=== PATIENT | female | born 1975 | race American Indian/Alaskan Native ===

== ENCOUNTER → 2016-12-03 | Day surgery (SDC) | payer OTHER ==
[~2016-12-03] MED LIST: Benzocaine 20% Oral Spray 59.2 ML Canister MUCMEM ONE; Lactated Ringers 1,000 ML IV SCH; Lidocaine 1% 30 ML SDV INJECT ONE; Propofol 200 MG/20 ML SDV IV ONE
[2016-12-03 12:26] VITALS: BP 146/81
--- NOTE | 2016-12-03 14:36 | OR ---
DATE: 12/03/2016 PREOPERATIVE DIAGNOSIS: Epigastric discomfort. POSTOPERATIVE DIAGNOSIS: Type 1 hiatal hernia. ANESTHESIA: Topical lidocaine for the oropharyngeal area as well as IV sedation. ESTIMATED BLOOD LOSS: None. BRIEF HISTORY: Shayla Mccann is a 41-year-old female, who has been plagued by this epigastric pain. She has undergone a cholecystectomy and the pain returned. She has been treated for H. pylori and it still was there. I at this point, had the opportunity to discuss the risks and benefits of upper endoscopy, and she agrees to proceed. She was taken to the operating room and IV sedation was begun, but we did a time out first. I then prior to the IV sedation anesthetized her oropharyngeal area with lidocaine. A bite block was placed. At this point, I was able to pass the scope and clearly her epiglottis and cords looked good. On the esophagus, there was good peristalsis, and then at the Z-line there was just, I could see she did have clearly a small type 1 hiatal hernia. I would say it was about 3 cm. Passing the scope into the stomach, the rest of the stomach looked fine. On entering the greater and lesser curvatures, the prepyloric area was without ulcerations. I advanced the scope into the duodenum again, no ulcerations. Several biopsies were taken of the prepyloric area as well as for H. pylori. I took a biopsy then of the greater curvature. The rest of the mucosa looked normal. While coming out again, there was no signs of Chan's esophagus, and I did not see any gross diverticulum. She tolerated the procedure well. [facility] /[id number]
--- NOTE | 2016-12-10 09:09 | FUPR ---
SERVICE DATE: 12/07/2016 The phone conversation occurred here on the November, this is being dictated by Dr. Gonzalez. SUBJECTIVE: Ms. Mccann did call me because she wanted to know about the followup of her hiatal hernia. I had performed an upper endoscopy on her on Saturday. I told her that I really wanted her to come back in so that we could discuss this in person. She stated that she could not. She was asking what a hernia meant, I tried to explain it that with the smaller hernias we could treat this with medications. I told her that she needs to follow up this closely with her primary care. She stated that she does not really have a primary care and she is in the [place]. She has been to the [facility] before and I have recommended that she strongly follow up with them. In the mean time, I said she could easily come and see me today. She stated that she could not. At that point in time, I told her to start taking some [id number] medications such as Pepcid, to put the head of her bed. I explained to her that this needs to be followed as sometimes we will re-scope them or do additional tests, but that needs to be discussed in person. I also told her that I will be back in town on January 14 and the doors have been left open. I also explained that today we will be open and whenever she would want to come in and indeed she should. What she said she is going to do, she wants to start out by taking the medications as we explained. She seemed to understand that she would put her head over bed up and will go from there. Again, this conversation occurred just a moments ago and lasted about 6.5 minutes. This is again on Shayla Mccann a phone conversation, trying to get her to come into the clinic today. [facility] /[id number]
== END ==
LOC: DL.ENDO 08:29
PROVIDERS: ATTEND Surgery
DX: K29.50 Unspecified chronic gastritis without bleeding (principal); K44.9 Diaphragmatic hernia without obstruction or gangrene; K31.89 Other diseases of stomach and duodenum; I10 Essential (primary) hypertension; F17.210 Nicotine dependence, cigarettes, uncomplicated; Z90.49 Acquired absence of other specified parts of digestive tract; Z79.3 Long term (current) use of hormonal contraceptives; Z79.899 Other long term (current) drug therapy
CPT/HCPCS: 43239; 87077; J2704; J7120

== ENCOUNTER 2016-12-21 17:29 | Emergency (ER) | payer OTHER ==
[2016-12-21 17:57] VITALS: BP 182/101
[2016-12-21] MEDS ORDERED: GI Cocktail Oral Solution 30 ML PO ONE (18:58)
--- NOTE | 2016-12-21 19:30 | EDM.PDOC ---
ED HPI GI/ABDOMINAL - General Chief Complaint: Abdominal Pain Stated Complaint: NAUSEAUS,SWEATING,SHARP STABBING PAIN IN STOMACH Time Seen by Provider: 12/21/16 19:27 Source of Information: Reports: Patient History Limitations: Reports: No limitations - History of Present Illness INITIAL COMMENTS - FREE TEXT/NARRATIVE: onset Sx this AM. progressively getting worse. had gastroscopy by dr Villegas few weeks ago told has small H-H. - Related Data Allergies/ADRs: Allergies Allergy/AdvReac Type Severity Reaction Status Date / Time aspirin Allergy Nausea Verified 12/21/16 17:40 Penicillins Allergy Rash Verified 12/21/16 17:40 Home Meds: Home Meds Lisinopril 10 mg PO DAILY 03/12/14 [History] Norethindrone-Ethinyl Estrad [Norinyl 1+35] 1 each PO DAILY 11/30/16 [History] Past Medical History - Past Health History Medical/Surgical History: Denies Medical/Surgical History HEENT History: Reports: Impaired vision Cardiovascular History: Reports: None Respiratory History: Reports: Bronchitis, recurrent Gastrointestinal History: Reports: Other (see below) Other Gastrointestinal History: hernia Genitourinary History: Reports: None [employer] History: Reports: Musculoskeletal History: Reports: None Neurological History: Reports: None Psychiatric History: Reports: None Endocrine/Metabolic History: Reports: None Hematologic History: Reports: None Immunologic History: Reports: None Oncologic (Cancer) History: Reports: None Dermatologic History: Reports: None - Infectious Disease History Infectious Disease History: Reports: Chicken pox - Past Surgical History Head Surgeries/Procedures: Reports: None HEENT Surgical History: Reports: None Cardiovascular Surgical History: Reports: None Respiratory Surgical History: Reports: None GI Surgical History: Reports: Cholecystectomy Female Surgical History: Reports: None Social & Family History - Family History Family Medical History: Noncontributory HEENT: Reports: None Cardiac: Reports: None Respiratory: Reports: Asthma GI: Reports: None : Reports: None OBGYN: Reports: None Musculoskeletal: Reports: None Neurological: Reports: None Psychiatric: Reports: None Endocrine/Metabolic: Reports: Diabetes, type II Hematologic: Reports: None Immunologic: Reports: None Dermatologic: Reports: None Oncologic: Reports: None - Tobacco Use Smoking Status *Q: Current Every Day Smoker Years of Tobacco use: 30 Packs/Tins Daily: 0.2 Used Tobacco, but Quit: Yes Month Tobacco Last Used: january - Caffeine Use Caffeine Use: Reports: Coffee - Alcohol Use Days Per Week of Alcohol Use: 1 Number of Drinks Per Day: 1 Total Drinks Per Week: 1 - Recreational Drug Use Recreational Drug Use: No ED ROS GENERAL - Review of Systems Review Of Systems: ROS reveals no pertinent complaints other than HPI. ED EXAM, GI/ABD - Physical Exam Exam: See Below Exam Limited By: No limitations General Appearance: alert, WD/WN, anxious Ears: hearing grossly normal Throat/Mouth: Normal voice, No airway compromise Head: atraumatic Neck: non-tender, full range of motion Respiratory/Chest: no respiratory distress Cardiovascular: regular rate, rhythm GI/Abdominal: tenderness, other (epiG). No: distention, guarding, rebound, rigidity Neurological: alert, oriented, normal cognition, normal gait, no motor/sensory deficits Psychiatric: normal affect, normal mood Skin Exam: Warm, Dry Lymphatic: no adenopathy Course - Vital Signs Last Recorded V/S: Last Vital Signs Temp 36.3 C 12/21/16 17:54 Pulse 91 12/21/16 17:54 Resp 20 12/21/16 17:54 BP 182/101 H 12/21/16 17:54 Pulse Ox 98 12/21/16 17:54 - Orders/Labs/Meds Orders: Active Orders 24 hr Category Date Time Status EKG 12 Lead [EKG Documentation Completion] [RC] URGENT Care 12/21/16 19:04 Active Labs: Laboratory Tests 12/21/16 12/21/16 Range/Units 19:31 19:31 WBC 14.1 H (5.0-10.0) 10^3/uL RBC 4.08 L (4.2-5.4) 10^6/uL Hgb 12.2 (12.0-16.0) g/dL Hct 37.2 (37.0-47.0) % MCV 91.2 (80-100) fL MCH 29.9 (27.0-34.0) pg MCHC 32.8 L (33.0-35.0) g/dL Plt Count 312 (150-450) 10^3/uL Neut % (Auto) 73.8 (42.2-75.2) % Lymph % (Auto) 20.8 (20.5-50.1) % [place] % (Auto) 4.0 (2-8) % Eos % (Auto) 1.3 (1.0-3.0) % Baso % (Auto) 0.1 (0.0-1.0) % Sodium 135 (135-145) mmol/L Potassium 4.2 (3.6-5.0) mmol/L Chloride 103 (101-111) mmol/L Carbon Dioxide 24.0 (21.0-31.0) mmol/L Anion Gap 12.2 BUN 11 (7-18) mg/dL Creatinine 0.7 (0.6-1.3) mg/dL Est Cr Clr Drug Dosing 90.41 mL/min Estimated GFR (MDRD) > 60 BUN/Creatinine Ratio 15.71 Glucose 95 (74-105) mg/dL Calcium 9.4 (8.4-10.2) mg/dl Total Bilirubin 0.1 L (0.2-1.0) mg/dL AST 23 (10-42) IU/L ALT 27 (10-60) IU/L Alkaline Phosphatase 69 (42-121) IU/L Troponin I < 0.02 (0.00-0.02) ng/ml Total Protein 7.7 (6.7-8.2) g/dl Albumin 4.0 (3.2-5.5) g/dl Globulin 3.7 Albumin/Globulin Ratio 1.08 Meds: Medications Discontinued Medications Generic Name Dose Route Start Last Admin Trade Name Freq PRN Reason Stop Dose Admin Al Hydroxide/Mg Hydroxide 30 ml 12/21/16 18:58 12/21/16 19:02 Gi Cocktail PO 12/21/16 18:59 30 ml ONETIME ONE Administration - Re-Assessments/Exams Free Text/Narrative Re-Assessment/Exam: 12/21/16 19:29 s/p GI cocktail=better. 12/21/16 20:16 re-exam; Pt still feeling good, no c/o Departure - Departure Time of Disposition: 20:16 Disposition: Home, Self-Care 01 Condition: good Clinical Impression: Hiatal hernia with gastroesophageal reflux disease and esophagitis Instructions: Food Choices for Gastroesophageal Reflux Disease, Adult Forms: ED Department Discharge Additional Instructions: 1) rest and avoid bending lifting straining 2) have light meal tonight 3) follow up at clinic or recheck as needed - My Orders Last 24 Hours: My Active Orders 12/21/16 19:04 EKG 12 Lead [EKG Documentation Completion] [RC] URGENT - Assessment/Plan Last 24 Hours: My Active Orders 12/21/16 19:04 EKG 12 Lead [EKG Documentation Completion] [RC] URGENT
[2016-12-21 20:07] LABS: CHLORIDE,CL 103 mmol/L (101-111); SODIUM,NA 135 mmol/L (135-145)
--- NOTE | 2016-12-26 10:14 | EKG ---
12/21/2016 - OLIMPIA SALGADO - This 12-lead EKG shows baseline artifact throughout the limb leads. EKG itself shows a normal sinus rhythm with a ventricular rate of 89. Normal axis and intervals. No acute ST-segment or T-wave changes. [facility] /[id number]
== END 2016-12-21 20:24 | disposition home or self-care (01) ==
LOC: DL.ED 17:29
DX: K44.9 Diaphragmatic hernia without obstruction or gangrene (principal); K21.0 Gastro-esophageal reflux disease with esophagitis; F17.210 Nicotine dependence, cigarettes, uncomplicated; Z88.6 Allergy status to analgesic agent; Z88.0 Allergy status to penicillin; Z79.899 Other long term (current) drug therapy; Z90.49 Acquired absence of other specified parts of digestive tract
CPT/HCPCS: 36415; 80053; 84484; 85025; 93005; 99284; A9270

== ENCOUNTER 2016-12-28 07:03 | Day surgery (SDC) | payer OTHER ==
[~2016-12-28 07:03] MED LIST changes: -Benzocaine 20% Oral Spray 59.2 ML Canister MUCMEM ONE; +Dextrose 5%-0.45% NaCl 1,000 ML IV SCH; -Lactated Ringers 1,000 ML IV SCH; -Lidocaine 1% 30 ML SDV INJECT ONE; +Midazolam 1 MG/ML 2 ML SDV ONE; -Propofol 200 MG/20 ML SDV IV ONE; +fentaNYL 100 MCG/2 ML SDV ONE
[2016-12-28] MEDS ORDERED: Sodium Chloride 0.9% 10 ML Syringe FLUSH PRN (07:40)
[2016-12-28] MEDS ORDERED: Dextrose 5%-0.45% NaCl 1,000 ML IV SCH (07:45)
[2016-12-28] MEDS ORDERED: fentaNYL 100 MCG/2 ML SDV IV ONE ×3 (08:06→15:05)
[2016-12-28] MEDS ORDERED: Midazolam 1 MG/ML 2 ML SDV IV ONE ×3 (08:07→15:05)
[2016-12-28 10:06] VITALS: BP 129/87
--- NOTE | 2016-12-28 10:49 | OR ---
DATE: 12/28/2016 PROCEDURE: Esophagogastroduodenoscopy and multiple pinch biopsies. INSTRUMENT USED: GIF-Q180 Olympus video panendoscope. PREMEDICATIONS: No oral topical anesthesia used. Fentanyl 100 mcg intravenous, Versed 2 mg intravenous. The procedure was done under pulse oximetry, BP recording, and monitor technician. INDICATION: The patient with persistent abdominal pain, unexplained and not responsive to medical measures, on PPI. Esophagogastroduodenoscopy is performed for detection of any active erosive lesions, Chan esophagus and/or malignancy also under consideration, H. pylori status to be determined, time, endoscopic hemostasis therapy if needed. DESCRIPTION OF PROCEDURE: The scope was passed with ease. Adequate visualization of the esophagus was made from proximal to distal areas. No upper esophageal lesions identified. No distal esophageal stricture. No uphill or downhill esophageal varices. No Darshana-Phillips tear. No evidence of erosive esophagitis by [place] criteria. No esophageal polyp or tumor mass identified. Z-line was seen at around 40 cm distal to the oral verge, configuration consistent with grade 1 by ZAP classification. No proximal gastric varices noted. Gastric fundus examination with retroflexion showed no polypoid lesions. No gastric ulcer, malignant mass, or vascular ectasia identified. Duodenal bulb showed no ulcer. Visualized second part of the duodenum unremarkable. Multiple pinch biopsies were taken from the gastric antrum and proximal body and sent for PyloriTek test for H. pylori, and if negative, the tissue is to be sent for histopathology. No bleeding was noted from any of the visualized areas at the completion of examination. Photographs were taken of the duodenal bulb, gastric antrum, fundus, and distal esophagus. IMPRESSION: Normal study. The patient tolerated the procedure well. [facility] /[id number]
== END 2016-12-28 10:10 | disposition home or self-care (01) ==
LOC: DL.ENDO 07:03
PROVIDERS: ATTEND Internal Medicine Gastroenterology
DX: K29.50 Unspecified chronic gastritis without bleeding (principal); R10.10 Upper abdominal pain, unspecified; E66.9 Obesity, unspecified; I10 Essential (primary) hypertension; F17.210 Nicotine dependence, cigarettes, uncomplicated; Z90.49 Acquired absence of other specified parts of digestive tract; Z79.3 Long term (current) use of hormonal contraceptives; Z79.899 Other long term (current) drug therapy; Z88.0 Allergy status to penicillin; Z88.6 Allergy status to analgesic agent
CPT/HCPCS: 43239; J2250; J3010; J7042

== ENCOUNTER 2017-01-18 18:25 | Emergency (ER) | payer OTHER ==
[2017-01-18] MEDS ORDERED: GI Cocktail Oral Solution 30 ML PO ONE (18:47)
--- NOTE | 2017-01-18 18:51 | EDM.PDOC ---
ED HPI GENERAL MEDICAL PROBLEM - General Stated Complaint: STOMACH PAIN [phone] Time Seen by Provider: 01/18/17 18:47 Source of Information: Reports: Patient History Limitations: Reports: No Limitations - History of Present Illness INITIAL COMMENTS - FREE TEXT/NARRATIVE: 4 days h/o epiG pain, ate chicken cesaar last night and been in worse pain since. can't take it anymore. had GB out in august, Dr Meng did EGD 12-27-16 which is normal. had UGI many years ago. Upper Abdominal Pain Score (Numeric/FACES): 9 - Related Data Allergies Allergy/AdvReac Type Severity Reaction Status Date / Time aspirin Allergy Nausea Verified 01/18/17 18:48 Penicillins Allergy Rash Verified 01/18/17 18:48 Home Meds: Home Meds Lisinopril 10 mg PO DAILY 03/12/14 [History] Norethindrone-Ethinyl Estrad [Norinyl 1+35] 1 each PO DAILY 11/30/16 [History] Famotidine [Pepcid AC] 10 mg PO ASDIRECTED 12/27/16 [History] Past Medical History - Past Health History Medical/Surgical History: Denies Medical/Surgical History HEENT History: Reports: Impaired Vision Cardiovascular History: Reports: None Respiratory History: Reports: Bronchitis, Recurrent Gastrointestinal History: Reports: Diverticulosis, Other (See Below) Other Gastrointestinal History: hernia Genitourinary History: Reports: None ROUND UP RING HAND History: Reports: Musculoskeletal History: Reports: None Neurological History: Reports: None Psychiatric History: Reports: None Endocrine/Metabolic History: Reports: None Hematologic History: Reports: None Immunologic History: Reports: None Oncologic (Cancer) History: Reports: None Dermatologic History: Reports: None - Infectious Disease History Infectious Disease History: Reports: Chicken Pox - Past Surgical History Head Surgeries/Procedures: Reports: None HEENT Surgical History: Reports: None Cardiovascular Surgical History: Reports: None Respiratory Surgical History: Reports: None GI Surgical History: Reports: Cholecystectomy Female Surgical History: Reports: None Social & Family History - Family History Family Medical History: Noncontributory HEENT: Reports: None Cardiac: Reports: None Respiratory: Reports: Asthma GI: Reports: None : Reports: None OBGYN: Reports: None Musculoskeletal: Reports: None Neurological: Reports: None Psychiatric: Reports: None Endocrine/Metabolic: Reports: Diabetes, type II Hematologic: Reports: None Immunologic: Reports: None Dermatologic: Reports: None Oncologic: Reports: None - Tobacco Use Smoking Status *Q: Current Every Day Smoker Years of Tobacco use: 30 Packs/Tins Daily: 0.2 Used Tobacco, but Quit: No Month Tobacco Last Used: january - Caffeine Use Caffeine Use: Reports: Coffee Other Caffeine Use: AVERAGE DAILY INTAKE DOWN TO 1 CUP DAILY - Alcohol Use Days Per Week of Alcohol Use: 1 Number of Drinks Per Day: 1 Total Drinks Per Week: 1 - Recreational Drug Use Recreational Drug Use: No Drug Use in Last 12 Months: No ED ROS GENERAL - Review of Systems Review Of Systems: ROS reveals no pertinent complaints other than HPI. ED EXAM, GI/ABD - Physical Exam Exam: See Below Exam Limited By: No Limitations General Appearance: Alert, WD/WN, Mild Distress, Other (pain) Ears: Hearing Grossly Normal Throat/Mouth: Normal Voice, No Airway Compromise Head: Atraumatic Neck: Non-Tender, Full Range of Motion Respiratory/Chest: No Respiratory Distress Cardiovascular: Regular Rate, Rhythm GI/Abdominal: Tenderness, Other (epiG region splinting.). No: Guarding, Rebound , Rigidity Neurological: Alert, Oriented, Normal Cognition, Normal Gait, No Motor/Sensory Deficits Psychiatric: Tearful Skin Exam: Warm, Dry Lymphatic: No Adenopathy Course - Vital Signs Last Recorded V/S: Last Vital Signs Temp 36.6 C 01/18/17 18:35 Pulse 75 01/18/17 22:33 Resp 16 01/18/17 22:33 BP 174/96 H 01/18/17 22:33 Pulse Ox 96 01/18/17 22:33 - Orders/Labs/Meds Orders: Active Orders 24 hr Category Date Time Status Abdomen Pelvis w Cont [CT] Urgent Exams 01/18/17 20:06 Taken Labs: Laboratory Tests 01/18/17 01/18/17 Range/Units 19:12 19:12 WBC 14.4 H (5.0-10.0) 10^3/uL RBC 4.48 (4.2-5.4) 10^6/uL Hgb 13.4 (12.0-16.0) g/dL Hct 40.1 (37.0-47.0) % MCV 89.5 (80-100) fL MCH 29.9 (27.0-34.0) pg MCHC 33.4 (33.0-35.0) g/dL Plt Count 332 (150-450) 10^3/uL Neut % (Auto) 83.9 H (42.2-75.2) % Lymph % (Auto) 13.5 L (20.5-50.1) % [place] % (Auto) 2.3 (2-8) % Eos % (Auto) 0.1 L (1.0-3.0) % Baso % (Auto) 0.2 (0.0-1.0) % Sodium 135 (135-145) mmol/L Potassium 4.3 (3.6-5.0) mmol/L Chloride 102 (101-111) mmol/L Carbon Dioxide 24.0 (21.0-31.0) mmol/L Anion Gap 13.3 BUN 9 (7-18) mg/dL Creatinine 0.7 (0.6-1.3) mg/dL Est Cr Clr Drug Dosing 91.06 mL/min Estimated GFR (MDRD) > 60 BUN/Creatinine Ratio 12.85 Glucose 111 H (74-105) mg/dL Calcium 8.9 (8.4-10.2) mg/dl Total Bilirubin 0.5 (0.2-1.0) mg/dL AST 20 (10-42) IU/L ALT 22 (10-60) IU/L Alkaline Phosphatase 67 (42-121) IU/L Total Protein 7.9 (6.7-8.2) g/dl Albumin 4.2 (3.2-5.5) g/dl Globulin 3.7 Albumin/Globulin Ratio 1.14 Amylase 22 L (28-100) U/L Lipase 19 L (22-51) U/L Meds: Medications Discontinued Medications Generic Name Dose Route Start Last Admin Trade Name Freq PRN Reason Stop Dose Admin Al Hydroxide/Mg Hydroxide 30 ml 01/18/17 18:47 01/18/17 18:52 Gi Cocktail PO 01/18/17 18:48 30 ml ONETIME ONE Administration Clonidine HCl 0.1 mg 01/18/17 20:48 01/18/17 20:51 Catapres PO 01/18/17 20:49 Not Given ONETIME ONE Clonidine HCl 0.1 mg 01/18/17 21:54 01/18/17 21:56 Catapres PO 01/18/17 21:55 0.1 mg ONETIME ONE Administration Hydromorphone HCl 1 mg 01/18/17 20:02 01/18/17 20:09 Dilaudid IVPUSH 01/18/17 20:03 1 mg ONETIME ONE Administration Hydromorphone HCl 1 mg 01/18/17 22:36 Dilaudid IVPUSH 01/18/17 22:37 ONETIME ONE Sodium Chloride 1,000 mls @ 999 mls/hr 01/18/17 19:10 01/18/17 19:24 Normal Saline IV 01/18/17 20:10 999 mls/hr .BOLUS ONE Administration Iopamidol 100 ml 01/18/17 20:07 Isovue-300 (61%) IVPUSH 01/18/17 20:08 ONETIME ONE Lisinopril 10 mg 01/18/17 20:50 01/18/17 20:53 Prinivil PO 01/18/17 20:51 10 mg ONETIME ONE Administration Metoclopramide HCl 10 mg 01/18/17 20:02 01/18/17 20:07 Reglan IVPUSH 01/18/17 20:03 10 mg ONETIME ONE Administration Morphine Sulfate 2 mg 01/18/17 19:13 01/18/17 19:26 Morphine IVPUSH 01/18/17 19:14 2 mg ONETIME ONE Administration Ondansetron HCl 4 mg 01/18/17 19:10 01/18/17 19:25 Zofran IV 01/18/17 19:11 4 mg ONETIME ONE Administration - Re-Assessments/Exams Free Text/Narrative Re-Assessment/Exam: 01/18/17 19:06 s/p GI cocktail=same 01/18/17 20:05 re-exam; still not any better. had normal CAT last week. cancer risk discussed with Pt who request repeat CAT since pain not going away despite MS. 01/18/17 22:[address] Cox @ [facility] who kindly accepted Pt. Departure - Departure Time of Disposition: 22:51 Disposition: DC/Tfer to [facility] 02 Condition: good Clinical Impression: Abdominal pain Qualifiers: Abdominal location: epigastric Qualified Code(s): R10.13 - Epigastric pain - Discharge Information Forms: Interfacility Transfer EMTALA - My Orders Last 24 Hours: My Active Orders 01/18/17 20:06 Abdomen Pelvis w Cont [CT] Urgent - Assessment/Plan Last 24 Hours: My Active Orders 01/18/17 20:06 Abdomen Pelvis w Cont [CT] Urgent
[2017-01-18] MEDS ORDERED: Ondansetron 4 MG/2 ML SDV IV ONE (19:10)
[2017-01-18] MEDS ORDERED: Sodium Chloride 0.9% 1,000 ML IV ONE (19:10)
[2017-01-18] MEDS ORDERED: Morphine 2 MG/ML Syringe IVPUSH ONE (19:13)
[2017-01-18 19:57] LABS: CHLORIDE,CL 102 mmol/L (101-111); SODIUM,NA 135 mmol/L (135-145)
[2017-01-18] MEDS ORDERED: HYDROmorphone 1 MG/ML Syringe IVPUSH ONE ×2 (20:02→22:36)
[2017-01-18] MEDS ORDERED: Metoclopramide 10 MG/2 ML SDV IVPUSH ONE (20:02)
[2017-01-18] MEDS ORDERED: Iopamidol 612 MG/ML 100 ML Bottle IVPUSH ONE (20:07)
[2017-01-18] MEDS ORDERED: cloNIDine 0.1 MG Tab PO ONE ×2 (20:48→21:54)
[2017-01-18] MEDS ORDERED: Lisinopril 10 MG Tab PO ONE (20:50)
[2017-01-18 23:22] VITALS: BP 149/93
== END 2017-01-18 23:22 ==
LOC: DL.ED 18:25
DX: R10.13 Epigastric pain (principal); F17.210 Nicotine dependence, cigarettes, uncomplicated; Z88.6 Allergy status to analgesic agent; Z88.0 Allergy status to penicillin; Z79.899 Other long term (current) drug therapy; Z90.49 Acquired absence of other specified parts of digestive tract
CPT/HCPCS: 36415; 74177; 80053; 82150; 83690; 85025; 96361; 96374; 96375; 96376; 99285; A9270; J1170; J2270; J2405; J2765; J7030; Q9967

== ENCOUNTER 2017-03-14 07:11 | Emergency (ER) | payer OTHER ==
[2017-03-14 07:23] VITALS: BP 155/99
[2017-03-14] MEDS ORDERED: Ondansetron 4 MG/2 ML SDV IV ONE (07:37)
[2017-03-14] MEDS ORDERED: Lactated Ringers 1,000 ML IV ONE (07:37)
--- NOTE | 2017-03-14 07:44 | EDM.PDOC ---
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 The patient reports her pain started at 0200 this morning. The patient took Pepcid and Protonix with no relief. The patient reports she had a gyro last night for dinner. 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 The patient reports she has had similar symptoms in the past (December) and was sent to [facility] in [place]. The patient reports they did an MRI and found a gallstone stuck, but the patient has had her gallbladder removed this year and had an EGD this year. The patient reports she has been doing well lately until this morning. The patient reports she has not take any ibuprofen or Tylenol for her pain. Onset: Today Onset Date: 03/14/17 Onset Time: 02:00 Duration: Constant Location: Reports: Abdomen (epigastic ) Quality: Reports: Ache, Dull Severity: Moderate Improves with: Reports: None Worsens with: Reports: None Context: Reports: Activity, Lifting Upper Mid-Sternal Abdomen Pain Score (Numeric/FACES): 8 - Related Data Allergies Allergy/AdvReac Type Severity Reaction Status Date / Time aspirin Allergy Nausea Verified 03/14/17 07:23 Penicillins Allergy Rash Verified 03/14/17 07:23 Home Meds: Home Meds Lisinopril 10 mg PO DAILY 03/12/14 [History] Norethindrone-Ethinyl Estrad [Norinyl 1+35] 1 each PO DAILY 11/30/16 [History] Famotidine [Pepcid AC] 10 mg PO ASDIRECTED 12/27/16 [History] Pantoprazole Sodium [Protonix] 40 mg PO DAILY 03/14/17 [History] Past Medical History - Past Health History Medical/Surgical History: Denies Medical/Surgical History HEENT History: Reports: Impaired Vision Other HEENT History: wears glasses Cardiovascular History: Reports: None, Hypertension Respiratory History: Reports: Bronchitis, Recurrent Gastrointestinal History: Reports: Diverticulosis, Other (See Below) Other Gastrointestinal History: hernia Genitourinary History: Reports: None 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: Musculoskeletal History: Reports: None Neurological History: Reports: None Psychiatric History: Reports: None Endocrine/Metabolic History: Reports: None Hematologic History: Reports: None Immunologic History: Reports: None Oncologic (Cancer) History: Reports: None Dermatologic History: Reports: None - Infectious Disease History Infectious Disease History: Reports: Chicken Pox - Past Surgical History Head Surgeries/Procedures: Reports: None HEENT Surgical History: Reports: None Cardiovascular Surgical History: Reports: None Respiratory Surgical History: Reports: None GI Surgical History: Reports: Cholecystectomy Female Surgical History: Reports: None Social & Family History - Family History Family Medical History: Noncontributory HEENT: Reports: None Cardiac: Reports: None Respiratory: Reports: Asthma GI: Reports: None : Reports: None OBGYN: Reports: None Musculoskeletal: Reports: None Neurological: Reports: None Psychiatric: Reports: None Endocrine/Metabolic: Reports: Diabetes, type II Hematologic: Reports: None Immunologic: Reports: None Dermatologic: Reports: None Oncologic: Reports: None - Tobacco Use Smoking Status *Q: Current Every Day Smoker Years of Tobacco use: 23 Packs/Tins Daily: 0.5 Used Tobacco, but Quit: No Month Tobacco Last Used: january Second Hand Smoke Exposure: No - Caffeine Use Caffeine Use: Reports: Soda Other Caffeine Use: AVERAGE DAILY INTAKE DOWN TO 1 CUP DAILY - Alcohol Use Days Per Week of Alcohol Use: 1 Number of Drinks Per Day: 1 Total Drinks Per Week: 1 - Recreational Drug Use Recreational Drug Use: No Drug Use in Last 12 Months: No ED ROS GENERAL - Review of Systems Review Of Systems: ROS reveals no pertinent complaints other than HPI. ED EXAM, GI/ABD - Physical Exam Exam: See Below Exam Limited By: No Limitations General Appearance: Alert, WD/WN, Moderate Distress Eyes: Bilateral: Normal Appearance, EOMI Ears: Normal External Exam, Normal Canal, Hearing Grossly Normal, Normal TMs Nose: Normal Inspection, Normal Mucosa, No Blood Throat/Mouth: Normal Inspection, Normal Lips, Normal Teeth, Normal Gums, Normal Oropharynx, Normal Voice, No Airway Compromise Head: Atraumatic, Normocephalic Neck: Normal Inspection, Supple, Non-Tender, Full Range of Motion Respiratory/Chest: No Respiratory Distress, Lungs Clear, Normal Breath Sounds, No Accessory Muscle Use, Chest Non-Tender Cardiovascular: Normal Peripheral Pulses, Regular Rate, Rhythm, No Edema, No Gallop, No JVD, No Murmur, No Rub GI/Abdominal Exam: Normal Bowel Sounds, Soft, No Organomegaly, No Distention, No Abnormal Bruit, No Mass, Pelvis Stable, Tender (epigastric tenderness) (Female) Exam: Deferred Rectal (Female) Exam: Deferred Back Exam: Normal Inspection, Full Range of Motion, NT Extremities: Normal Inspection, Normal Range of Motion, Non-Tender, Normal Capillary Refill, No Pedal Edema Neurological: Alert, Oriented, CN II-XII Intact, Normal Cognition, Normal Gait, Normal Reflexes, No Motor/Sensory Deficits Psychiatric: Normal Affect, Normal Mood Skin Exam: Warm, Dry, Intact, Normal Color, No Rash Lymphatic: No Adenopathy Course - Vital Signs Last Recorded V/S: Last Vital Signs Temp 36.1 C 03/14/17 07:18 Pulse 91 03/14/17 07:18 Resp 16 03/14/17 07:18 BP 155/99 H 03/14/17 07:18 Pulse Ox 100 03/14/17 07:18 - Orders/Labs/Meds Labs: Laboratory Tests 03/14/17 03/14/17 03/14/17 Range/Units 07:49 07:49 08:10 WBC 9.8 (5.0-10.0) 10^3/uL RBC 4.07 L (4.2-5.4) 10^6/uL Hgb 12.2 (12.0-16.0) g/dL Hct 36.6 L (37.0-47.0) % MCV 89.9 (80-100) fL MCH 30.0 (27.0-34.0) pg MCHC 33.3 (33.0-35.0) g/dL Plt Count 224 (150-450) 10^3/uL Neut % (Auto) 70.7 (42.2-75.2) % Lymph % (Auto) 21.9 (20.5-50.1) % [place] % (Auto) 5.6 (2-8) % Eos % (Auto) 1.6 (1.0-3.0) % Baso % (Auto) 0.2 (0.0-1.0) % Sodium 136 (135-145) mmol/L Potassium 3.8 (3.6-5.0) mmol/L Chloride 104 (101-111) mmol/L Carbon Dioxide 20.0 L (21.0-31.0) mmol/L Anion Gap 15.8 BUN 11 (7-18) mg/dL Creatinine 0.6 (0.6-1.3) mg/dL Est Cr Clr Drug Dosing 105.47 mL/min Estimated GFR (MDRD) > 60 BUN/Creatinine Ratio 18.33 Glucose 118 H (74-105) mg/dL Calcium 8.6 (8.4-10.2) mg/dl Total Bilirubin 1.2 H (0.2-1.0) mg/dL AST 50 H (10-42) IU/L ALT 61 H (10-60) IU/L Alkaline Phosphatase 65 (42-121) IU/L Total Protein 7.4 (6.7-8.2) g/dl Albumin 4.0 (3.2-5.5) g/dl Globulin 3.4 Albumin/Globulin Ratio 1.18 Amylase 24 L (28-100) U/L Lipase 24 (22-51) U/L Urine Color (YELLOW) Urine Appearance (CLEAR) Urine pH (5.0-9.0) Ur Specific [place] (1.005-1.030) Urine Protein (NEGATIVE) Urine Glucose (UA) (NEGATIVE) Urine Ketones (NEGATIVE) Urine Occult Blood (NEGATIVE) Urine Nitrite (NEGATIVE) Urine Bilirubin (NEGATIVE) Urine Urobilinogen (0.2-1.0) mg/dL Ur Leukocyte Esterase (NEGATIVE) Urine RBC /HPF Urine WBC (0-5/HPF) /HPF Ur Epithelial Cells /HPF Urine Bacteria (0-FEW/HPF) /HPF Urine Mucus /LPF Urine Opiates Screen Negative (NEGATIVE) Ur Oxycodone Screen Negative (NEGATIVE) Urine Methadone Screen Negative (NEGATIVE) Ur Barbiturates Screen Negative (NEGATIVE) U Tricyclic Antidepress Negative (NEGATIVE) Ur Phencyclidine Scrn Negative (NEGATIVE) Ur Amphetamine Screen Negative (NEGATIVE) U Methamphetamines Scrn Negative (NEGATIVE) Urine MDMA Screen Negative (NEGATIVE) U Benzodiazepines Scrn Negative (NEGATIVE) Urine Cocaine Screen Negative (NEGATIVE) U Marijuana (THC) Screen Negative (NEGATIVE) Ethyl Alcohol < 5 mg/dL 03/14/17 Range/Units 08:10 WBC (5.0-10.0) 10^3/uL RBC (4.2-5.4) 10^6/uL Hgb (12.0-16.0) g/dL Hct (37.0-47.0) % MCV (80-100) fL MCH (27.0-34.0) pg MCHC (33.0-35.0) g/dL Plt Count (150-450) 10^3/uL Neut % (Auto) (42.2-75.2) % Lymph % (Auto) (20.5-50.1) % [place] % (Auto) (2-8) % Eos % (Auto) (1.0-3.0) % Baso % (Auto) (0.0-1.0) % Sodium (135-145) mmol/L Potassium (3.6-5.0) mmol/L Chloride (101-111) mmol/L Carbon Dioxide (21.0-31.0) mmol/L Anion Gap BUN (7-18) mg/dL Creatinine (0.6-1.3) mg/dL Est Cr Clr Drug Dosing mL/min Estimated GFR (MDRD) BUN/Creatinine Ratio Glucose (74-105) mg/dL Calcium (8.4-10.2) mg/dl Total Bilirubin (0.2-1.0) mg/dL AST (10-42) IU/L ALT (10-60) IU/L Alkaline Phosphatase (42-121) IU/L Total Protein (6.7-8.2) g/dl Albumin (3.2-5.5) g/dl Globulin Albumin/Globulin Ratio Amylase (28-100) U/L Lipase (22-51) U/L Urine Color Yellow (YELLOW) Urine Appearance Clear (CLEAR) Urine pH 6.0 (5.0-9.0) Ur Specific [place] 1.025 (1.005-1.030) Urine Protein Trace H (NEGATIVE) Urine Glucose (UA) Negative (NEGATIVE) Urine Ketones Negative (NEGATIVE) Urine Occult Blood Negative (NEGATIVE) Urine Nitrite Negative (NEGATIVE) Urine Bilirubin Small H (NEGATIVE) Urine Urobilinogen 0.2 (0.2-1.0) mg/dL Ur Leukocyte Esterase Negative (NEGATIVE) Urine RBC 0-5 /HPF Urine WBC 0-5 (0-5/HPF) /HPF Ur Epithelial Cells Many H /HPF Urine Bacteria Moderate H (0-FEW/HPF) /HPF Urine Mucus Many H /LPF Urine Opiates Screen (NEGATIVE) Ur Oxycodone Screen (NEGATIVE) Urine Methadone Screen (NEGATIVE) Ur Barbiturates Screen (NEGATIVE) U Tricyclic Antidepress (NEGATIVE) Ur Phencyclidine Scrn (NEGATIVE) Ur Amphetamine Screen (NEGATIVE) U Methamphetamines Scrn (NEGATIVE) Urine MDMA Screen (NEGATIVE) U Benzodiazepines Scrn (NEGATIVE) Urine Cocaine Screen (NEGATIVE) U Marijuana (THC) Screen (NEGATIVE) Ethyl Alcohol mg/dL Meds: Medications Discontinued Medications Generic Name Dose Route Start Last Admin Trade Name Freq PRN Reason Stop Dose Admin Acetaminophen 650 mg 03/14/17 08:33 03/14/17 08:39 Tylenol PO 03/14/17 08:34 650 mg NOW ONE Administration Al Hydroxide/Mg Hydroxide 30 ml 03/14/17 08:19 03/14/17 08:23 Gi Cocktail PO 03/14/17 08:20 30 ml ONETIME ONE Administration Lactated Ringer's 1,000 mls @ 999 mls/hr 03/14/17 07:37 03/14/17 07:51 Ringers, Lactated IV 03/14/17 08:37 999 mls/hr .BOLUS ONE Administration Ketorolac Tromethamine 30 mg 03/14/17 08:19 03/14/17 08:23 Toradol IVPUSH 03/14/17 08:20 30 mg ONETIME ONE Administration Ondansetron HCl 4 mg 03/14/17 07:37 03/14/17 07:51 Zofran IV 03/14/17 07:38 4 mg ONETIME ONE Administration Departure - Departure Time of Disposition: 09:05 Disposition: Home, Self-Care 01 Condition: Fair Clinical Impression: Abdominal muscle strain Qualifiers: Encounter type: initial encounter Qualified Code(s): S39.011A - Strain of muscle, fascia and tendon of abdomen, initial encounter - Discharge Information Instructions: Muscle Strain Forms: ED Department Discharge Care Plan Goals: The patient was advised of the examination and lab results during the visit. The patient was given IV Toradol, an oral GI cocktail and an oral dose of Tylenol while in the ED. The patient was encouraged to rest over the next 24 hours. If the patient has any additional symptoms or further concerns, the patient should follow-up with her primary care facility for continued evaluation and further management.
[2017-03-14 08:12] LABS: CHLORIDE,CL 104 mmol/L (101-111); SODIUM,NA 136 mmol/L (135-145)
[2017-03-14] MEDS ORDERED: Ketorolac 30 MG/ML SDV IVPUSH ONE (08:19)
[2017-03-14] MEDS ORDERED: GI Cocktail Oral Solution 30 ML PO ONE (08:19)
[2017-03-14] MEDS ORDERED: Acetaminophen 325 MG Tab PO ONE (08:33)
== END 2017-03-14 09:31 | disposition home or self-care (01) ==
LOC: DL.ED 07:11
DX: S39.011A Strain of muscle, fascia and tendon of abdomen, initial encounter (principal); I10 Essential (primary) hypertension; F17.210 Nicotine dependence, cigarettes, uncomplicated; Z90.49 Acquired absence of other specified parts of digestive tract; Z79.899 Other long term (current) drug therapy; Z88.6 Allergy status to analgesic agent; Z88.0 Allergy status to penicillin; X58.XXXA Exposure to other specified factors, initial encounter
CPT/HCPCS: 36415; 80053; 80305; 81001; 82150; 83690; 85025; 96361; 96374; 96375; 99284; A9270; G0480; J1885; J2405; J7120

== ENCOUNTER 2017-04-28 18:55 | Emergency (ER) | payer OTHER ==
[2017-04-28] MEDS ORDERED: GI Cocktail Oral Solution 30 ML PO ONE ×2 (19:20→20:16)
[2017-04-28] MEDS ORDERED: Sucralfate 1 GM Tab PO ONE (20:53)
[2017-04-28] MEDS ORDERED: Sucralfate 1 GM Tab ONE (20:53)
--- NOTE | 2017-04-28 20:56 | EDM.PDOC ---
ED HPI GENERAL MEDICAL PROBLEM - General Chief Complaint: Abdominal Pain Stated Complaint: STOMACH PAIN [id number] Time Seen by Provider: 04/28/17 20:30 Source of Information: Reports: Patient - History of Present Illness INITIAL COMMENTS - FREE TEXT/NARRATIVE: severe heartburn since last night after drinking iced coffee, similar sx in past , has had multiple egd and ct's of abdomen. GI cocktails in past have provided best relief, Tried 2 pepcid and protonix today without relief. Epigastric Pain Score (Numeric/FACES): 5 - Related Data Allergies Allergy/AdvReac Type Severity Reaction Status Date / Time aspirin Allergy Nausea Verified 04/28/17 19:17 Penicillins Allergy Rash Verified 04/28/17 19:17 Home Meds: Home Meds Lisinopril 10 mg PO DAILY 03/12/14 [History] Norethindrone-Ethinyl Estrad [Norinyl 1+35] 1 each PO DAILY 11/30/16 [History] Famotidine [Pepcid AC] 20 mg PO ASDIRECTED 12/27/16 [History] Pantoprazole Sodium [Protonix] 40 mg PO DAILY 03/14/17 [History] Past Medical History - Past Health History Medical/Surgical History: Denies Medical/Surgical History HEENT History: Reports: Impaired Vision Other HEENT History: wears glasses Cardiovascular History: Reports: None, Hypertension Respiratory History: Reports: Bronchitis, Recurrent Gastrointestinal History: Reports: Diverticulosis, GERD, Other (See Below) Other Gastrointestinal History: hernia Genitourinary History: Reports: None 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: Musculoskeletal History: Reports: None Neurological History: Reports: None Psychiatric History: Reports: None Endocrine/Metabolic History: Reports: None Hematologic History: Reports: None Immunologic History: Reports: None Oncologic (Cancer) History: Reports: None Dermatologic History: Reports: None - Infectious Disease History Infectious Disease History: Reports: Chicken Pox - Past Surgical History Head Surgeries/Procedures: Reports: None HEENT Surgical History: Reports: None Cardiovascular Surgical History: Reports: None Respiratory Surgical History: Reports: None GI Surgical History: Reports: Cholecystectomy Female Surgical History: Reports: None Social & Family History - Family History Family Medical History: Noncontributory HEENT: Reports: None Cardiac: Reports: None Respiratory: Reports: Asthma GI: Reports: None : Reports: None OBGYN: Reports: None Musculoskeletal: Reports: None Neurological: Reports: None Psychiatric: Reports: None Endocrine/Metabolic: Reports: Diabetes, type II Hematologic: Reports: None Immunologic: Reports: None Dermatologic: Reports: None Oncologic: Reports: None - Tobacco Use Smoking Status *Q: Current Every Day Smoker Years of Tobacco use: 30 Packs/Tins Daily: 0.1 Used Tobacco, but Quit: No Month Tobacco Last Used: january Second Hand Smoke Exposure: No - Caffeine Use Caffeine Use: Reports: Coffee Other Caffeine Use: Had ice coffee last night. Does not normally drink coffee. - Alcohol Use Days Per Week of Alcohol Use: 1 Number of Drinks Per Day: 1 Total Drinks Per Week: 1 - Recreational Drug Use Recreational Drug Use: No Drug Use in Last 12 Months: No ED ROS GENERAL - Review of Systems Review Of Systems: ROS reveals no pertinent complaints other than HPI. ED EXAM, GI/ABD - Physical Exam Exam: See Below Exam Limited By: No Limitations General Appearance: Alert, Mild Distress (rubbing low epigastric area) Ears: Normal External Exam Nose: Normal Inspection Throat/Mouth: Normal Inspection Neck: Normal Inspection Respiratory/Chest: No Respiratory Distress, Lungs Clear, Normal Breath Sounds Cardiovascular: Normal Peripheral Pulses, Regular Rate, Rhythm GI/Abdominal Exam: Normal Bowel Sounds, Soft, Tender (epigastric with light palpation). No: Distended Neurological: Alert, Oriented, Normal Cognition Psychiatric: Normal Affect Course - Vital Signs Last Recorded V/S: Last Vital Signs Temp 98.2 F 04/28/17 19:12 Pulse 90 04/28/17 21:00 Resp 14 04/28/17 20:11 BP 159/105 H 04/28/17 21:00 Pulse Ox 99 04/28/17 20:11 - Orders/Labs/Meds Meds: Medications Discontinued Medications Generic Name Dose Route Start Last Admin Trade Name Freq PRN Reason Stop Dose Admin Al Hydroxide/Mg Hydroxide 30 ml 04/28/17 19:20 04/28/17 19:28 Gi Cocktail PO 04/28/17 19:21 30 ml ONETIME ONE Administration Al Hydroxide/Mg Hydroxide 30 ml 04/28/17 20:16 04/28/17 20:19 Gi Cocktail PO 04/28/17 20:17 30 ml ONETIME ONE Administration Sucralfate Confirm 04/28/17 20:53 04/28/17 21:00 Carafate Administered 04/28/17 20:54 Not Given Dose 6 gm .ROUTE .STK-MED ONE - Re-Assessments/Exams Free Text/Narrative Re-Assessment/Exam: 04/30/17 04:38 pain improved with GI cocktail. Departure - Departure Time of Disposition: 20:52 Disposition: Home, Self-Care 01 Condition: Good Clinical Impression: Acute epigastric pain - Discharge Information Instructions: Peptic Ulcer, [id number] Forms: ED Department Discharge Additional Instructions: carafate 1Gm one half hour before meals and bedtime, #6 separate at least 45 minutes between usual home medications clinic follow up if continued symptoms light bland diet as tolerated
[2017-04-28 21:01] VITALS: BP 159/105
== END 2017-04-28 21:07 | disposition home or self-care (01) ==
LOC: DL.ED 18:55
DX: R10.13 Epigastric pain (principal); I10 Essential (primary) hypertension; K21.9 Gastro-esophageal reflux disease without esophagitis; F17.210 Nicotine dependence, cigarettes, uncomplicated; Z90.49 Acquired absence of other specified parts of digestive tract; Z79.899 Other long term (current) drug therapy; Z88.0 Allergy status to penicillin; Z88.6 Allergy status to analgesic agent
CPT/HCPCS: 99283; A9270

== ENCOUNTER 2017-05-10 08:47 | Day surgery (SDC) | payer OTHER ==
[~2017-05-10 08:47] MED LIST changes: -Dextrose 5%-0.45% NaCl 1,000 ML IV SCH
[2017-05-10] MEDS ORDERED: fentaNYL 100 MCG/2 ML SDV IV ONE ×4 (08:48→11:00)
[2017-05-10] MEDS ORDERED: Midazolam 1 MG/ML 2 ML SDV IV ONE ×4 (08:48→11:02)
[2017-05-10] MEDS ORDERED: Lactated Ringers 1,000 ML IV SCH (09:30)
[2017-05-10] MEDS ORDERED: Lidocaine 2% Viscous Solution 15 ML Cup ONE (10:29)
[2017-05-10] MEDS ORDERED: Benzocaine 20% Oral Spray 59.2 ML Canister ONE (10:39)
[2017-05-10] MEDS ORDERED: Lidocaine 2% Viscous Solution 15 ML Cup PO ONE (10:39)
[2017-05-10] MEDS ORDERED: Benzocaine 20% Oral Spray 59.2 ML Canister MUCMEM ONE (10:40)
[2017-05-10] MEDS ORDERED: Midazolam 1 MG/ML 2 ML SDV ONE (11:01)
--- NOTE | 2017-05-10 14:26 | OR ---
DATE: 05/10/2017 REFERRING PROVIDER: Alexa Davila PA-C PREOPERATIVE DIAGNOSES: Epigastric abdominal pain and screening colonoscopy. POSTOPERATIVE DIAGNOSES: Epigastric abdominal pain and screening colonoscopy. PROCEDURE: EGD with multiple biopsies including duodenal, gastric, and lower esophagus, followed by attempted total colonoscopy to the hepatic flexure, aborted secondary to the patient's pain level. ANESTHESIA: Conscious sedation with IV Versed and fentanyl. SPECIMEN: Duodenal biopsy, gastric biopsy, H. pylori gastric biopsy, and lower esophageal biopsy. RECOMMENDATION: This patient has significant epigastric abdominal pain that on 3 previous EGDs now, have appeared to be normal. This is either functional, and would recommend a 24-hour pH monitor to detect amount of reflux, and manometry to look for esophageal spasm, probably would be best to have a formal GI consult for this. Colonoscopy only had a few scattered diverticula throughout and even though was incomplete at her age group and with her symptomatology, the screening to the hepatic flexure would be adequate for this purpose. Should have a repeat colonoscopy at age 49, but will require anesthesia for the procedural sedation as this patient had 150 of fentanyl, and 8 mg of Versed and was still pretty much wide-awake. DESCRIPTION OF PROCEDURE: After adequate preparation, the gastroscope was inserted into the esophagus. This was passed down to the distal esophagus. She shows a 1 cm hiatal hernia which was seen on previous EGDs. No evidence of significant reflux however. No esophagitis, stricture, scars, or bleeding sites. The rest of the esophagus is also normal. The scope was advanced into the stomach, both forward and retroflexed views were done and were normal. A photograph of the retroflexed fundus area was taken as well as the pre-pyloric antral area of the stomach. The scope was advanced into the duodenum and down to the third portion, there is no evidence of duodenal ulcerations or inflammation. No polyps or malignant growths are noted. On the retrieval of the scope, 2 duodenal biopsies were taken. As the scope was passed back into the stomach, 2 antral biopsies were taken one for H. pylori, and in the esophagus area 2 biopsies of the distal esophagus were taken. Air was suctioned from the stomach and the scope removed. We now proceeded with colonoscopy. A scope was inserted into the rectum, and examination of the rectum is normal. The scope was advanced without any difficulty mechanical coker except for the patient's intolerance to the procedure. On increasing doses of both Versed and fentanyl, she still was extremely uncomfortable. I could only advance the scope to the hepatic flexure without causing her more significant pain. To that point, however it was normal. There was no evidence of anything that would account for her epigastric abdominal pain. She does have a few scattered diverticula throughout the colon. These are of no consequence. Air was suctioned from the colon, and the scope removed. [facility] /[id number] cc: Alexa Davila PA-C [facility]
[2017-05-10 14:46] VITALS: BP 139/85
== END 2017-05-10 13:10 | disposition home or self-care (01) ==
LOC: DL.ENDO 08:47
PROVIDERS: ATTEND Surgery
DX: Z12.11 Encounter for screening for malignant neoplasm of colon (principal); K44.9 Diaphragmatic hernia without obstruction or gangrene; K57.30 Diverticulosis of large intestine without perforation or abscess without bleeding; I10 Essential (primary) hypertension; E66.9 Obesity, unspecified; Z88.0 Allergy status to penicillin; Z88.8 Allergy status to other drugs, medicaments and biological substances; Z90.49 Acquired absence of other specified parts of digestive tract
CPT/HCPCS: 43239; 45378; 87077; A9270; J2250; J3010; J7120

== ENCOUNTER 2021-08-22 22:30 | Inpatient (IN) | payer BC, OTHER ==
[2021-08-22] MEDS ORDERED: Sodium Chloride 0.9% 10 ML Syringe FLUSH PRN (23:12)
[2021-08-22] MEDS ORDERED: Sodium Chloride 0.9% 1,000 ML IV ONE (23:15)
[2021-08-22] MEDS ORDERED: HYDROmorphone 0.5 MG/0.5 ML Syringe IVPUSH ONE (23:15)
[2021-08-22] MEDS ORDERED: Ondansetron 4 MG/2 ML SDV IVPUSH ONE (23:18)
[2021-08-22 23:29] LABS: ANION GAP 16.4 mEq/L (7-13); CHLORIDE,CL 100 mmol/L (98-107); SODIUM,NA 138 mmol/L (136-145)
[2021-08-23] MEDS: Sodium Chloride 0.9% 1,000 ML IV SCH ×2 (02:40→10:16)
[2021-08-23] MEDS: HYDROmorphone 0.5 MG/0.5 ML Syringe IVPUSH PRN ×2 (06:01→12:44)
[2021-08-23] MEDS ORDERED: Magnesium Sulfate/Water 2 GM in Premix Bag 1 BAG IV ONE (09:30)
[2021-08-23] MEDS ORDERED: Acetaminophen 325 MG Tab PO PRN (10:49)
[2021-08-23] MEDS ORDERED: Docusate Sodium 100 MG Cap PO PRN (10:49)
[2021-08-23] MEDS ORDERED: Dextrose 5%-0.9% NaCl 1,000 ML IV SCH (11:00)
[2021-08-23 11:50] VITALS: BP 129/75; PULSE 73
[2021-08-24] MEDS ORDERED: Enoxaparin 40 MG/0.4 ML Syringe SUBCUT SCH (09:00)
== END 2021-08-23 14:41 | DRG 251 ==
LOC: DL.ED 22:30 → DL.MS 08-23 01:49
PROVIDERS: ADMIT Internal Medicine Nephrology; ATTEND Internal Medicine Nephrology
DX: R10.13 Epigastric pain (principal); R79.89 Other specified abnormal findings of blood chemistry; R17 Unspecified jaundice; Z79.899 Other long term (current) drug therapy; Z88.0 Allergy status to penicillin; Z88.6 Allergy status to analgesic agent; H54.7 Unspecified visual loss; K21.9 Gastro-esophageal reflux disease without esophagitis; I10 Essential (primary) hypertension; Z90.49 Acquired absence of other specified parts of digestive tract; E83.42 Hypomagnesemia; Z20.822 Contact with and (suspected) exposure to COVID-19
CPT/HCPCS: 36415; 74176; 80053; 81003; 82150; 83605; 83690; 83735; 85025; 86140; 96374; 96375; 99284-25; 99285; J1170; J2405; J3475; J7030; J7042; U0002

== ENCOUNTER 2021-09-21 20:04 | Emergency (ER) | payer BC, OTHER ==
[2021-09-21 20:22] VITALS: BP 133/92; PULSE 114
== END 2021-09-21 22:09 | disposition home or self-care (01) ==
LOC: DL.ED 20:04
DX: S83.92XA Sprain of unspecified site of left knee, initial encounter (principal); I10 Essential (primary) hypertension; Z88.0 Allergy status to penicillin; Z88.8 Allergy status to other drugs, medicaments and biological substances; Z79.899 Other long term (current) drug therapy; W01.0XXA Fall on same level from slipping, tripping and stumbling without subsequent striking against object, initial encounter
CPT/HCPCS: 73562-LT; 99283-25

== ENCOUNTER 2022-04-28 20:09 | Emergency (ER) | payer BC, MEDICAID ==
[2022-04-28] MEDS ORDERED: Sodium Chloride 0.9% 10 ML Syringe FLUSH PRN (20:13)
[2022-04-28 20:32] VITALS: BP 97/63; PULSE 104
[2022-04-28] MEDS ORDERED: Sodium Chloride 0.9% 1,000 ML IV ONE (20:43)
[2022-04-28 21:08] LABS: ANION GAP 21.6 mEq/L (7-13); CHLORIDE,CL 107 mmol/L (98-107); SODIUM,NA 144 mmol/L (136-145)
[2022-04-28 21:12] LABS: ESTIMATED GFR 50 mL/min (>=60)
== END 2022-04-28 21:01 | disposition left against medical advice (07) ==
LOC: DL.ED 20:09
DX: R06.02 Shortness of breath (principal); I25.10 Atherosclerotic heart disease of native coronary artery without angina pectoris; I10 Essential (primary) hypertension; K21.9 Gastro-esophageal reflux disease without esophagitis; Z88.0 Allergy status to penicillin; Z88.8 Allergy status to other drugs, medicaments and biological substances; Z79.899 Other long term (current) drug therapy; Z53.8 Procedure and treatment not carried out for other reasons
CPT/HCPCS: 36415; 80053; 80307; 83605; 83690; 83735; 83880; 84443; 84484; 85025; 86140; 93005; 99285; J3490; J7030

== ENCOUNTER 2024-11-16 14:49 | Emergency (ER) | payer BC, MEDICAID ==
[2024-11-16] MEDS: Iopamidol 755 Mg/ML 100 ML Bottle IVPUSH ONE (14:58)
[2024-11-16 15:13] LABS: BASOPHILS PERCENT AUTO 0.7 % (0.0-1.0); EOSINOPHILS PERCENT AUTO 1.4 % (1.0-3.0); HEMATOCRIT 42.7 % (37.0-47.0); HEMOGLOBIN 14.2 g/dL (12.0-16.0); LYMPHOCYTES PERCENT AUTO 39.6 % (20.5-50.1); MEAN CORPUSCULAR HEMOGLOBIN 29.9 pg (27.0-34.0); MEAN CORPUSCULAR HGB CONC 33.3 g/dL (33.0-35.0); MEAN CORPUSCULAR VOLUME 89.9 fL (80-100); NEUTROPHILS PERCENT AUTO 51.3 % (42.2-75.2); PLATELET COUNT,PLT 317 10^3/uL (150-450); RED BLOOD CELL COUNT 4.75 10^6/uL (4.2-5.4); WHITE BLOOD CELL COUNT,WBC 10.6 10^3/uL (5.0-10.0)
[2024-11-16] MEDS: Acetaminophen 325 MG Tab PO ONE (15:31)
[2024-11-16] MEDS: Diazepam 5 MG Tab PO ONE (15:31)
[2024-11-16 15:36] LABS: A/G RATIO 0.9; ALANINE AMINOTRANSFERASE,ALT 57 U/L (14-59); ALBUMIN 4.1 g/dL (3.4-5.0); ALKALINE PHOSPHATASE 99 U/L (46-116); ASPARTATE AMNIOTRANSFERASE,AST 48 U/L (15-37); BILIRUBIN TOTAL 0.2 mg/dL (0.2-1.0); BLOOD UREA NITROGEN,BUN 3 mg/dL (7-18); BUN/CREATININE RATIO 3.5 (No establ ref range); CALCIUM 9.1 mg/dL (8.5-10.1); CHLORIDE,CL 97 mmol/L (98-107); CREATININE 0.86 mg/dL (0.55-1.02); GLUCOSE RANDOM 102 mg/dL (70-99); LIPASE 48 U/L (16-77); POTASSIUM,K 3.5 mmol/L (3.5-5.1); PROTEIN TOTAL,TP 8.7 g/dL (6.4-8.2)
[2024-11-16 15:41] LABS: ANION GAP 19.5 mEq/L (7-13); CARBON DIOXIDE,CO2 23 mmol/L (21-32); SODIUM,NA 136 mmol/L (136-145)
[2024-11-16 15:42] LABS: ESTIMATED GFR 82 mL/min (>=60)
[2024-11-16 16:39] VITALS: BP 132/94; PULSE 95
== END 2024-11-16 17:11 | disposition home or self-care (01) ==
LOC: DL.ED 14:49
DX: R07.89 Other chest pain (principal); I10 Essential (primary) hypertension; K21.9 Gastro-esophageal reflux disease without esophagitis; Z88.0 Allergy status to penicillin; Z88.6 Allergy status to analgesic agent; Z79.899 Other long term (current) drug therapy; Z90.49 Acquired absence of other specified parts of digestive tract
CPT/HCPCS: 36415; 71275; 80053; 80307; 83690; 84484; 85025; 99285; A9270; Q9967; 93010; 99284

== ENCOUNTER 2025-02-26 00:20 | Emergency (ER) | payer OTHER ==
[2025-02-26] MEDS: Take Home: Doxycycline 100 MG Cap, 4 Cap Pack PO ONE (02:02)
[2025-02-26] MEDS: Ketorolac 30 MG/ML SDV IM ONE (02:02)
[2025-02-26 02:14] VITALS: BP 135/98; PULSE 77
== END 2025-02-26 02:15 | disposition home or self-care (01) ==
LOC: DL.ED 00:20
DX: T63.451A Toxic effect of venom of hornets, accidental (unintentional), initial encounter (principal); I16.0 Hypertensive urgency; L03.115 Cellulitis of right lower limb; K21.9 Gastro-esophageal reflux disease without esophagitis; Z88.5 Allergy status to narcotic agent; Z88.0 Allergy status to penicillin; Z79.899 Other long term (current) drug therapy; Z90.49 Acquired absence of other specified parts of digestive tract; Z87.891 Personal history of nicotine dependence
CPT/HCPCS: 96372; 99283; A9270; J1885